=== PATIENT | male | born 1985 | race Caucasian/White ===

== ENCOUNTER 2020-09-17 16:21 | Emergency (ER) | payer MEDICAID ==
[~2020-09-17] VITALS: Ht 165.1 cm; Wt 108.9 kg
[2020-09-17 16:27] VITALS: BP 122/53
[2020-09-17] MEDS ORDERED: KETOROLAC 30 MG/ML VIAL IM ONE (18:25)
[2020-09-17] MEDS ORDERED: NAPR-54 PO (19:18)
[2020-09-17 20:40] VITALS: BP 122/53
== END 2020-09-17 20:40 | disposition home or self-care (01) ==
LOC: MED 16:21
DX: S00.83XA Contusion of other part of head, initial encounter (principal); M54.2 Cervicalgia; Y04.8XXA Assault by other bodily force, initial encounter; Y93.89 Activity, other specified; Y92.89 Other specified places as the place of occurrence of the external cause; Y99.8 Other external cause status
CPT/HCPCS: 70486; 96372; 99284; J1885